=== PATIENT | male | born 1965 | race Caucasian/White ===

== ENCOUNTER 2023-07-26 10:42 | Outpatient (CLI) | payer OTHER, SELFPAY ==
[2023-07-26 10:59] VITALS: PULSE 94; RESP 18; O2SAT 98
[2023-07-26] MEDS: albuterol 2.5 mg/3 mL Neb INHALATION (10:59)
[2023-07-26 11:02] VITALS: PULSE 101
== END 2023-07-26 10:43 | disposition home or self-care (01) ==
PROVIDERS: PCP Family Medicine; Visit Provider Chiropractor
DX: R06.02 Shortness of breath (principal)
CPT/HCPCS: 94060; J7613